=== PATIENT | female | born 1955 ===

== ENCOUNTER 2017-06-06 19:06 | Emergency (ER) | payer OTHER ==
[~2017-06-06] VITALS: Ht 160 cm; Wt 93.0 kg
[~2017-06-06 19:06] MED LIST: CRESTOR5 MG; LEVOXYL50 MCG; SYNTHROID50 MCG
== END 2017-06-06 22:44 | disposition home or self-care (01) ==
LOC: ER 19:06
DX: S90.112A Contusion of left great toe without damage to nail, initial encounter (principal); W18.39XA Other fall on same level, initial encounter; Y93.89 Activity, other specified; Y92.89 Other specified places as the place of occurrence of the external cause; Y99.8 Other external cause status

== ENCOUNTER 2018-07-03 12:49 | Outpatient (CLI) | payer OTHER | END 2018-07-03 12:53 | disposition home or self-care (01) | LOC: EKG 12:49 | DX: I10 Essential (primary) hypertension (principal) ==

== ENCOUNTER 2018-10-12 12:57 | Emergency (ER) | payer OTHER ==
[~2018-10-12] VITALS: Ht 157.5 cm; Wt 95.3 kg
== END 2018-10-12 20:55 | disposition home or self-care (01) ==
LOC: ER 12:57
DX: S60.212A Contusion of left wrist, initial encounter (principal); S00.83XA Contusion of other part of head, initial encounter; S40.012A Contusion of left shoulder, initial encounter; S60.222A Contusion of left hand, initial encounter; W18.39XA Other fall on same level, initial encounter; Y93.89 Activity, other specified; Y92.098 Other place in other non-institutional residence as the place of occurrence of the external cause; Y99.8 Other external cause status

== ENCOUNTER 2019-04-27 23:18 | Emergency (ER) | payer OTHER ==
[~2019-04-27] VITALS: Ht 165.1 cm; Wt 56.7 kg
[2019-04-28] MEDS ORDERED: ALBUTEROL2.5 MG/3 M IH (05:30)
[2019-04-28] MEDS ORDERED: SYMBICORT 16010.2 GM IH (05:30)
[2019-04-28] MEDS ORDERED: OSEL75CA PO (05:30)
[2019-04-28] MEDS ORDERED: ZYNCOF 20-400120 ML PO (05:30)
== END 2019-04-28 05:31 ==
LOC: ER 23:18
DX: J09.X2 Influenza due to identified novel influenza A virus with other respiratory manifestations (principal)

== ENCOUNTER → 2020-07-09 15:00 | Outpatient (CLI) | payer OTHER ==
[~2020-07-09 15:00] MED LIST changes: +ALBUTEROL2.5 MG/3 M IH; +OSEL75CA PO; +SYMBICORT 16010.2 GM IH; +ZYNCOF 20-400120 ML PO
== END | disposition home or self-care (01) ==
LOC: EDBD 15:00 → PPH VACUNA 15:00
DX: Z23 Encounter for immunization (principal)

== ENCOUNTER → 2020-07-30 08:00 | Outpatient (CLI) | payer OTHER | END | disposition home or self-care (01) | LOC: PPH VACUNA 08:00 → EDBD 08:00 | DX: Z23 Encounter for immunization (principal) ==

== ENCOUNTER 2020-09-26 11:43 | Emergency (ER) | payer OTHER ==
[~2020-09-26] VITALS: Ht 165.1 cm; Wt 93.9 kg
== END 2020-09-26 21:34 | disposition home or self-care (01) ==
LOC: ER 11:43
DX: R07.89 Other chest pain (principal); K29.00 Acute gastritis without bleeding; M94.0 Chondrocostal junction syndrome [Tietze]; E20.9 Hypoparathyroidism, unspecified

== ENCOUNTER 2021-09-06 13:37 | Emergency (ER) | payer OTHER ==
[~2021-09-06] VITALS: Ht 162.6 cm; Wt 94.3 kg
[2021-09-06] MEDS ORDERED: NORFLEX100MG PO (15:15)
[2021-09-06] MEDS ORDERED: MEDROLPACK PO (15:15)
== END 2021-09-06 15:58 | disposition home or self-care (01) ==
LOC: ER 13:37
DX: M54.59 Other low back pain (principal); E03.9 Hypothyroidism, unspecified; Z88.5 Allergy status to narcotic agent; Z88.6 Allergy status to analgesic agent

== ENCOUNTER 2022-03-08 15:22 | Emergency (ER) | payer OTHER ==
[~2022-03-08] VITALS: Ht 165.1 cm; Wt 96.2 kg
[~2022-03-08 15:22] MED LIST changes: +MEDROLPACK PO; +NORFLEX100MG PO
[2022-03-08] MEDS ORDERED: CRESTOR5 MG (15:37)
== END 2022-03-08 19:58 | disposition home or self-care (01) ==
LOC: ER 15:22
DX: B34.9 Viral infection, unspecified (principal); Z20.822 Contact with and (suspected) exposure to COVID-19